=== PATIENT | female | born 1990 | race Caucasian/White ===

== ENCOUNTER 2016-11-07 22:23 | Emergency (ER) | payer OTHER ==
[2016-11-07 22:29] VITALS: BP 97/64; PULSE 116; TEMP 98.9; BMI 23.4
[2016-11-07] MEDS ORDERED: ACETAMINOPHEN 325 MG TABLET (FP) PO ONE (23:29)
--- NOTE | 2016-11-08 00:02 | PDOC ---
History of Present Illness - General History Source: Patient Exam Limitations: No Limitations <Flex Purdy - Last Filed: 11/08/16 00:54> - General History Source: Patient Exam Limitations: No Limitations - History of Present Illness Initial Comments: 11/08/16 00:26 The patient is a 26 year old female ( approximately 39 weeks ), with no significant past medical history, who presents to the ED with body aches , chills, coughing, since yesterday. Patient reports having a 100.7 fever at home. Patient saw her BRUSHER TENDER today and was given tamiflu, but only made it worse. Patient denies abdominal pain, vaginal discharge, bleeding, dysuria, hematuria. Patient nausea, vomiting, diarrhea. <Owen Reis - Last Filed: 11/08/16 01:19> - General Chief Complaint: Cold Symptoms Stated Complaint: COLD SYMPTOMS Time Seen by Provider: 11/07/16 23:21 Past History - Past Medical History Asthma: No Cancer: No Cardiac Disorders: No Diabetes: No HTN: No Seizures: No Thyroid Disease: No - Immunization History Immunization Up to Date: Yes - Psycho/Social/Smoking Cessation Hx Anxiety: No Suicidal Ideation: No Smoking Status: No Smoking History: Never smoked Have you smoked in the past 12 months: No Number of Cigarettes Smoked Daily: 0 Cigars Per Day: 0 Information on smoking cessation initiated: No Hx Alcohol Use: No Drug/Substance Use Hx: No Hx Substance Use Treatment: No <Flex Purdy - Last Filed: 11/08/16 00:54> <Owen Reis - Last Filed: 11/08/16 01:19> - Past Medical History Allergies/Adverse Reactions: Allergies Allergy/AdvReac Type Severity Reaction Status Date / Time No Known Allergies Allergy Verified 11/07/16 22:24 Home Medications: Ambulatory Orders Pnv with Ca,No.71/Iron/FA [ Vitamin Tablet] 1 each PO ASDIR #0 tablet Review of Systems - Review of Systems Able to Perform ROS?: Yes Comments:: 11/08/16 00:26 GENERAL/CONSTITUTIONAL:+ fever. + chills. + body aches. HEAD, EYES, EARS, NOSE AND THROAT: No change in vision. No ear pain or discharge. No sore throat. CARDIOVASCULAR: No chest pain or shortness of breath. RESPIRATORY: + cough. No wheezing, or hemoptysis. GASTROINTESTINAL: No nausea, vomiting, diarrhea or constipation. GENITOURINARY: No dysuria, frequency, or change in urination. MUSCULOSKELETAL: No joint or muscle swelling or pain. No neck or back pain. SKIN: No rash NEUROLOGIC: No headache, vertigo, loss of consciousness, or change in strength/ sensation. ENDOCRINE: No increased thirst. No abnormal weight change. HEMATOLOGIC/LYMPHATIC: No anemia, easy bleeding, or history of blood clots. ALLERGIC/IMMUNOLOGIC: No hives or skin allergy. <Owen Reis - Last Filed: 11/08/16 01:19> *Physical Exam - Vital Signs Last Vital Signs Temp Pulse Resp BP Pulse Ox 98.9 F 116 H 16 97/64 100 11/07/16 22:25 11/07/16 22:25 11/07/16 22:25 11/07/16 22:25 11/07/16 22:25 <Flex Purdy - Last Filed: 11/08/16 00:54> - Vital Signs Last Vital Signs Temp Pulse Resp BP Pulse Ox 98.9 F 116 H 16 97/64 100 11/07/16 22:25 11/07/16 22:25 11/07/16 22:25 11/07/16 22:25 11/07/16 22:25 - Physical Exam Comments: 11/08/16 00:27 GENERAL: Awake, alert, and fully oriented, in no acute distress HEAD: No signs of trauma EYES: PERRLA, EOMI, sclera anicteric, conjunctiva clear ENT: Auricles normal inspection, hearing grossly normal, nares patent, oropharynx clear without exudates. Moist mucosa NECK: Normal ROM, supple, no lymphadenopathy, JVD, or masses LUNGS: Breath sounds equal, clear to auscultation bilaterally. No wheezes, and no crackles HEART: Regular rate and rhythm, normal S1 and S2, no murmurs, rubs or gallops ABDOMEN: Soft, nontender, normoactive bowel sounds. No guarding, no rebound. No masses EXTREMITIES: Normal range of motion, no edema. No clubbing or cyanosis. No cords, erythema, or tenderness NEUROLOGICAL: Cranial nerves II through XII grossly intact. Normal speech, normal gait SKIN: Warm, Dry, normal turgor, no rashes or lesions noted. <Owen Reis - Last Filed: 11/08/16 01:19> ED Treatment Course - Medications Given in the ED: ED Medications Discontinued Medications Generic Name Dose Route Start Last Admin Trade Name Freq PRN Reason Stop Dose Admin Acetaminophen 650 mg 11/07/16 23:29 11/07/16 23:38 Tylenol - PO 11/07/16 23:30 650 mg ONCE ONE Administration <Flex Purdy - Last Filed: 11/08/16 00:54> - Medications Given in the ED: ED Medications Discontinued Medications Generic Name Dose Route Start Last Admin Trade Name Freq PRN Reason Stop Dose Admin Acetaminophen 650 mg 11/07/16 23:29 11/07/16 23:38 Tylenol - PO 11/07/16 23:30 650 mg ONCE ONE Administration <Owen Reis - Last Filed: 11/08/16 01:19> Medical Decision Making - Medical Decision Making 11/08/16 00:19 A portion of this note was documented by scribe services under my direction. I have reviewed the details of the note, within reason, and agree with the documentation with the following case summary and management plan written by me. Patient treated in the ED. Nursing notes are reviewed and incorporated into the medical decision-making. Vital signs reviewed. Peripheral IV access obtained by the nurse, laboratory studies are drawn and sent, reviewed and interpreted by myself. Vital Signs Temp Pulse Resp BP Pulse Ox 98.9 F 116 H 16 97/64 100 11/07/16 22:25 11/07/16 22:25 11/07/16 22:25 11/07/16 22:25 11/07/16 22:25 26-year-old female with no past medical history approximately 39 weeks presents to the emergency department for cold-like symptoms. 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 She was given Tamiflu. Ever, she reported that she felt body aches, chills, tactile fevers and coughing. She denies abdominal pain or vaginal bleeding. She reports that the Tamiflu dose didn't help. I treated the patient that 1 dose probably did not take effect. However, we'll send influenza swab. Supportive care. The patient stated that she would like to be home and away from the ER from all of its actions. I told her that she can call me back for the results for the influenza. I discussed the physical exam findings, ancillary test results and final diagnoses with the patient. I answered all of the patient's questions. The patient was satisfied with the care received and felt comfortable with the discharge plan and treatment plan. The patient will call their primary care physician within 24 hours to arrange follow-up and will return to the Emergency Department with any new, persistant or worsening symptoms. 11/08/16 00:54 Repeat HR upon discharge is 96. <Flex Purdy - Last Filed: 11/08/16 00:54> - Medical Decision Making 11/08/16 01:08 We contacted the patient and informed her she was positive for the influenza. Patient should continue taking Tamiflu. <Owen Reis - Last Filed: 11/08/16 01:19> *DC/Admit/Observation/Transfer - Discharge Dispostion Admit: No <Flex Purdy - Last Filed: 11/08/16 00:54> - Attestations Scribe Attestion: 11/08/16 00:28 Documentation prepared by Owen Reis, acting as medical clinic manager for Flex Purdy MD, MD. <Owen Reis - Last Filed: 11/08/16 01:19> Diagnosis at time of Disposition: Upper respiratory infection Qualifiers: URI type: unspecified URI Qualified Code(s): J06.9 - Acute upper respiratory infection, unspecified - Discharge Dispostion Disposition: HOME Condition at time of disposition: Stable - Referrals Referrals: Britt Lopez MD [Primary Care Provider] - - Patient Instructions Printed Discharge Instructions: DI for Viral Upper Respiratory Infection -- Adult Additional Instructions: Please call back at [phone] for the influenza results. If it's possible, please continue to take the tamiflu. Otherwise, take 650 mg tylenol every 4 hours as needed for fever or pain. Follow up with the vice president consulting services physician.
== END 2016-11-08 00:51 | disposition home or self-care (01) ==
LOC: JERFT 22:23 → JER 22:23
DX: O98.513 Other viral diseases complicating pregnancy, third trimester (principal); B33.8 Other specified viral diseases; J09.X2 Influenza due to identified novel influenza A virus with other respiratory manifestations; Z3A.39 39 weeks gestation of pregnancy
CPT/HCPCS: 87804; 99282-25

== ENCOUNTER 2017-09-27 20:06 | Emergency (ER) | payer OTHER ==
[2017-09-27 20:11] VITALS: BP 103/60; PULSE 83; TEMP 98.3; BMI 21.2
--- NOTE | 2017-09-27 20:17 | PDOC ---
History of Present Illness - General Chief Complaint: Cold Symptoms Stated Complaint: COUGH/CHEST CONGESTION Time Seen by Provider: 09/27/17 20:10 History Source: Patient Exam Limitations: No Limitations - History of Present Illness Initial Comments: 09/27/17 20:22 27 y/o female presents to the ED with dry hacking cough x 1 week and sore throat x 3 days. Pt denies difficulty swallowing, fever, difficulty breathing, headaches, or weakness. Pt denies smoking Severity: reports: mild Possible Cause: Yes: no prior episodes Associated Symptoms: reports: cough, sore throat. denies: chest pain/soreness, earache, fever/chills Past History - Travel Traveled outside of the country in the last 30 days: No - Past Medical History Allergies/Adverse Reactions: Allergies Allergy/AdvReac Type Severity Reaction Status Date / Time No Known Allergies Allergy Verified 09/27/17 20:08 Home Medications: Ambulatory Orders Phenylephrine/Dm/Acetaminop/GG [Tylenol Cold & Flu Severe Cplt] 1 each PO ASDIR 09/27/17 Asthma: No Cancer: No Cardiac Disorders: No COPD: No Diabetes: No HTN: No Seizures: No Thyroid Disease: No - Immunization History Immunization Up to Date: Yes - Suicide/Smoking/Psychosocial Hx Smoking Status: No Smoking History: Never smoked Have you smoked in the past 12 months: No Number of Cigarettes Smoked Daily: 0 Cigars Per Day: 0 Hx Alcohol Use: No Drug/Substance Use Hx: No Hx Substance Use Treatment: No Patient Lives Alone: No Lives with/in: spouse/SO Review of Systems - Review of Systems Able to Perform ROS?: Yes Constitutional: No: Symptoms Reported HEENTM: Yes: Throat Pain Respiratory: Yes: Cough Cardiac (ROS): No: Symptoms Reported ABD/GI: No: Symptoms Reported : No: Symptoms Reported Musculoskeletal: No: Symptoms Reported Integumentary: No: Symptoms Reported Neurological: No: Symptoms reported *Physical Exam - Vital Signs Last Vital Signs Temp Pulse Resp BP Pulse Ox 98.3 F 83 18 103/60 98 09/27/17 20:09 09/27/17 20:09 09/27/17 20:09 09/27/17 20:09 09/27/17 20:09 - Physical Exam General Appearance: Yes: Nourished, Appropriately Dressed. No: Apparent Distress HEENT: positive: EOMI, BURAK, TMs Normal, Pharynx Normal. negative: Pale Conjunctivae Neck: positive: Supple. negative: Lymphadenopathy (R), Lymphadenopathy (L) Respiratory/Chest: positive: Lungs Clear, Normal Breath Sounds. negative: Respiratory Distress, Accessory Muscle Use Cardiovascular: positive: Regular Rhythm, Regular Rate. negative: Murmur Gastrointestinal/Abdominal: positive: Soft. negative: Tenderness Integumentary: positive: Normal Color, Warm, Moist Neurologic: positive: Motor Strength 5/5 (ambulatory) Medical Decision Making - Medical Decision Making 09/27/17 20:25 Pt with uri complaints. Pt on exam with bronchitis. Pt will be discharged with Azithromycin *DC/Admit/Observation/Transfer Diagnosis at time of Disposition: Bronchitis - Discharge Dispostion Disposition: HOME Condition at time of disposition: Good - Referrals - Patient Instructions Printed Discharge Instructions: DI for Acute Bronchitis Additional Instructions: Please take azithromycin and motrin for pain. Use lozenges for throat pain and drink plenty of fluid - Post Discharge Activity
== END 2017-09-27 20:38 | disposition home or self-care (01) ==
LOC: JERFT 20:06
DX: J40 Bronchitis, not specified as acute or chronic (principal)
CPT/HCPCS: 99281-25

== ENCOUNTER 2019-07-15 04:05 | Emergency (ER) | payer OTHER ==
--- NOTE | 2019-07-15 04:29 | PDOC ---
History of Present Illness - General Stated Complaint: CHEST PAIN,DRY MOUTH,SHORTNESS OF BREATH Time Seen by Provider: 07/15/19 04:28 History Source: Patient, Spouse Exam Limitations: No Limitations - History of Present Illness Initial Comments: 07/15/19 04:29 HPI: 29yo F with no PMH presenting with multiple complaints 2 hours after drinking Kombucha and Elderberry syrup. Patient drank Kombucha and Elderberry syrup at midnight before bed. Awoke at 2AM with chills, dry mouth, dizziness, numbness in the extremities (UE more than low), several episodes of diarrhea, and palpitations. Significant other is presenting with similar symptoms. The two did not have any other shared foods (ate diner at 5 and 9 respectively) and only both had the beverages before bed. They have not had these before and are very nervous about their reactions. Denies swelling, hives, itchy skin or any known food or drug allergies. PMH: Denies PSH: Denies Meds: Denies All: KNDA SHx: Denies smoking / drinking / illicits Past History - Travel Traveled outside of the country in the last 30 days: No Close contact w/someone who was outside of country & ill: No - Past Medical History Allergies/Adverse Reactions: Allergies Allergy/AdvReac Type Severity Reaction Status Date / Time No Known Allergies Allergy Verified 09/27/17 20:08 Home Medications: Ambulatory Orders Azithromycin [Zithromax Tri-Gael (3 DAYS) -] 500 mg PO DAILY #3 tablet 09/27/17 Asthma: No Cancer: No Cardiac Disorders: No COPD: No Diabetes: No HTN: No Seizures: No Thyroid Disease: No - Immunization History Immunization Up to Date: Yes - Suicide/Smoking/Psychosocial Hx Smoking Status: No Smoking History: Never smoked Have you smoked in the past 12 months: No Number of Cigarettes Smoked Daily: 0 Cigars Per Day: 0 Hx Alcohol Use: No Drug/Substance Use Hx: No Hx Substance Use Treatment: No Review of Systems - Review of Systems Able to Perform ROS?: Yes Is the patient limited Yakut proficient: Yes Constitutional: Yes: Chills, Diaphoresis, Fever, Weakness HEENTM: No: Recent change in vision, Nose Pain, Throat Pain, Throat Swelling, Mouth Pain, Mouth Swelling Respiratory: No: Cough, Shortness of Breath, Wheezing Cardiac (ROS): Yes: Irregular Heart Rate, Palpitations. No: Chest Pain, Edema, Syncope, Chest Tightness ABD/GI: Yes: Diarrhea, Nausea, Vomiting. No: Blood Streaked Bowels, Rectal Bleeding, Indigestion, Abdominal cramping : No: Burning, Dysuria, Frequency Musculoskeletal: No: Back Pain, Gout, Joint Pain, Muscle Weakness Integumentary: No: Bruising, Pallor, Pruritus, Rash Neurological: Yes: Headache, Numbness, Tingling, Tremors Psychiatric: Yes: Anxiety Endocrine: Yes: Excessive Sweating, Flushing. No: Increased Thirst, Change in Weight Hematologic/Lymphatic: No: Anemia, Blood Clots, Easy Bruising All Other Systems: Reviewed and Negative *Physical Exam - Physical Exam Comments: 07/15/19 04:53 Gen: Anxious appearing woman, sitting in bed, NAD, appears stated age HEENT: NCAT, MMM, EOMI, PERRL CV: RRR, nl s1/s2, no murmurs Pulm: CTABL, normal WOB, no wheezes / rales / rhonchi Abd: soft, nontender, nondistended Ext: WWP, no clubbing / cyanosis / edema Pulses: 2+ radial and PT Neuro: alert and oriented, CN grossly intact, sensation intact, 5+ strength, MAEE ED Treatment Course - LABORATORY CBC & Chemistry Diagram: 07/15/19 04:15 07/15/19 04:15 Medical Decision Making - Medical Decision Making 07/15/19 04:57 29yo F with no PMH presenting with multiple complaints 2 hours after drinking Kombucha and Elderberry syrup. History same as reported by significant other. Exam unremarkable. Vitals notable for soft pressure, possibly baseline, and mild tachycardia initially. Concerning for forborne pathogen vs anxiety vs atypical allergic response vs viral gastroenterisits / syndrome unrelated to recent ingestions. -Serum Preg -CBC, CMP -IVF 1L -Zofran 4mg -Pepcid 07/15/19 05:59 -No leukocytosis or anemia -No electroolyte derangements -LFTs within normal ranges -Cr 0.9 07/15/19 06:29 -Pt reports feeling much better, attributes some sx to nerves, feeling like she poisoned herself (three kids at home) -Discussed return precautions and supportive care at home -Repeat vitals stable Dispo: home *DC/Admit/Observation/Transfer Diagnosis at time of Disposition: Gastroenteritis - Discharge Dispostion Disposition: HOME Condition at time of disposition: Improved Decision to Admit order: No - Referrals Referrals: Rivera Boogie [Primary Care Provider] - - Patient Instructions Printed Discharge Instructions: DI for Food Poisoning, DI for Viral Gastroenteritis -- Adult Additional Instructions: Please follow up with your primary care physician in the next week. In the meantime, return to the ED for any new or concerning symptoms. The treatment for your condition is supportive care - this means you should stay hydrated (with water and gatorade) and take tylenol as needed for pain and fever per directions on the bottle. You can also use an over the counter antacid such as pepcid for belly/burning pain. - Post Discharge Activity
[2019-07-15] MEDS ORDERED: SODIUM CHLORIDE 0.9% 500 ML INFUS.BAG IV ONE (04:41)
--- NOTE | 2019-07-15 04:41 | PDOC ---
Attending Attestation - Resident Resident Name: Min Peña - ED Attending Attestation I have performed the following: I have examined & evaluated the patient, The case was reviewed & discussed with the resident, I agree w/resident's findings & plan, Exceptions are as noted - HPI HPI: 07/15/19 08:28 29F no pmh here with chills, dry outh, dizziness, generalized paresthesias, several episodes of diarrhea and palpitations after drinking kombucha - Physicial Exam PE: 07/15/19 08:29 Agree with exam as documented by resident - Medical Decision Making 07/15/19 08:31 Food borne pathogen? viral AGE? Unlikely allergic reaction, focal neurologic pathology labs unremarkable Symptoms resolved dc home
[2019-07-15] MEDS ORDERED: ONDANSETRON 4 MG/2 ML VIAL IVPUSH ONE (05:14)
[2019-07-15] MEDS ORDERED: FAMOTIDINE 20 MG/50 ML IVPB 20 MG/50 ML MG IVPB ONE ×2 (05:15→05:19)
[2019-07-15 05:17] VITALS: TEMP 98.7; BMI 15.8
[2019-07-15] MEDS ORDERED: ONDANSETRON 4 MG/2 ML VIAL ONE (05:19)
[2019-07-15 05:22] LABS: BASO % 1.1 % (0-2.0); EOS % 0.6 % (0-4.5); HEMATOCRIT 39.9 % (32.4-45.2); HEMOGLOBIN 13.4 GM/dL (10.7-15.3); LYMPH % 21.9 % (8-40); MCH 31.6 pg (25.7-33.7); MCHC 33.6 g/dl (32.0-36.0); MEAN CELL VOLUME 94.1 fl (80-96); MEAN PLT VOLUME 10.3 fl (7.5-11.1); MONO % 7.7 % (3.8-10.2); NEUT % 68.7 % (42.8-82.8); PLATELET COUNT 137 K/MM3 (134-434); RBC 4.23 M/mm3 (3.60-5.2); RDW 13.6 % (11.6-15.6); WHITE BLOOD COUNT 6.4 K/mm3 (4.0-10.0)
[2019-07-15 05:51] LABS: ALBUMIN 4.2 g/dl (3.4-5.0); BILIRUBIN,TOTAL 0.5 mg/dL (0.2-1); BLOOD UREA NITROGEN 11.6 mg/dL (7-18); CREATININE 0.9 mg/dL (0.55-1.3); POTASSIUM 3.7 mmol/L (3.5-5.1); TOT PROT 7.2 g/dl (6.4-8.2)
[2019-07-15 06:58] VITALS: BP 98/63; PULSE 62
--- NOTE | 2019-07-15 14:19 | EKG ---
Test Reason : Blood Pressure : / mmHG Vent. Rate : 100 BPM Atrial Rate : 100 BPM P-R Int : 174 ms QRS Dur : 076 ms QT Int : 336 ms P-R-T Axes : 085 088 069 degrees QTc Int : 433 ms NORMAL SINUS RHYTHM RIGHT ATRIAL ENLARGEMENT NO PREVIOUS ECGS AVAILABLE Confirmed by MAC RED MD ([id number]) on 07/15/2019 2:19:00 PM Referred By: Confirmed By:MAC RED MD
== END 2019-07-15 07:00 | disposition home or self-care (01) ==
LOC: JER 04:05
PROC: 3E033GC Introduction of Other Therapeutic Substance into Peripheral Vein, Percutaneous Approach (ICD-10-PCS; principal; 2019-07-15)
PROC: 3E033GC Introduction of Other Therapeutic Substance into Peripheral Vein, Percutaneous Approach (ICD-10-PCS; 2019-07-15)
DX: K52.9 Noninfective gastroenteritis and colitis, unspecified (principal)
CPT/HCPCS: 36415; 80053; 84703; 85025; 93005; 93010; 96365; 96375; 99283-25

== ENCOUNTER 2019-07-20 03:00 | Emergency (ER) | payer OTHER ==
[2019-07-20] MEDS ORDERED: SODIUM CHLORIDE 1,000 ML IV STA (03:36)
[2019-07-20] MEDS ORDERED: ALPRAZolam 0.25 MG TABLET PO ONE (03:38)
--- NOTE | 2019-07-20 03:39 | PDOC ---
History of Present Illness - General Stated Complaint: PALPITATIONS Time Seen by Provider: 07/20/19 03:30 History Source: Patient Exam Limitations: No Limitations - History of Present Illness Initial Comments: Анна Higgins is 29 yo F w a pmh of hypothyroidism on synthroid that presents to the [facility] er after she woke up with palpitations which have resolved before she came into the ER. The patient states this is the 3rd time this week she experienced random palpitations. She denies having experienced any chest pain, SOB, difficulty breathing, nausea vomiting, fevers, chills, or infections. She states that her child was diagnosed with strep throat this week but she has not experienced any symptoms. Patient also endorses dysuria and frequency with possible abnormal urinary discharge. LMP: currently on period - started 2 days ago PCP: Keenan Boogie PSH: None reported Allergies: NKA, NKDA Social Hx: Recreational alcohol use. Denies smoking or illicit drug usage Past History - Past Medical History Allergies/Adverse Reactions: Allergies Allergy/AdvReac Type Severity Reaction Status Date / Time No Known Allergies Allergy Verified 07/20/19 03:49 Home Medications: Ambulatory Orders Levothyroxine [Synthroid -] 50 mcg PO DAILY 07/20/19 Asthma: No Cancer: No Cardiac Disorders: No COPD: No Diabetes: No HTN: No Seizures: No Thyroid Disease: No - Immunization History Immunization Up to Date: Yes - Psycho Social/Smoking Cessation Hx Smoking Status: No Smoking History: Never smoked Have you smoked in the past 12 months: No Number of Cigarettes Smoked Daily: 0 Cigars Per Day: 0 Hx Alcohol Use: No Drug/Substance Use Hx: No Hx Substance Use Treatment: No Review of Systems - Review of Systems Able to Perform ROS?: Yes Comments:: CONSTITUTIONAL: Absent: fever, no chills, no fatigue EYES: Absent: visual changes ENT: Absent: ear pain, no sore throat CARDIOVASCULAR: Present: Palpitations Absent: chest pain RESPIRATORY: Absent: cough, no SOB GI: Absent: abdominal pain, no nausea, no vomiting, no constipation, no diarrhea GENITOURINARY: Absent: dysuria, no frequency, no hematuria MUSKULOSKELETAL: Absent: back pain, no arthralgia, no myalgia SKIN: Absent: rash NEURO: Absent: headache *Physical Exam - Physical Exam Comments: GENERAL: Well-appearing, well-nourished. No apparent distress. HEENT: Normocephalic, atraumatic. PERRL, EOM intact. CARDIOVASCULAR: Normal S1, S2. Regular rate and rhythm. PULMONARY: No evidence of respiratory distress. Lungs clear to auscultation bilaterally. No wheezing, rales or rhonchi. ABDOMEN: Soft, non-distended, non-tender. EXTREMITIES: Normal ROM in all four extremities. No gross deformities. SKIN: Warm, dry. No rash NEUROLOGICAL: No focal neurological deficits. ED Treatment Course - LABORATORY CBC & Chemistry Diagram: 07/20/19 03:53 07/20/19 03:53 Medical Decision Making - Medical Decision Making Анна Higgins is 29 yo F w a pmh of hypothyroidism on synthroid that presents to the [facility] er after she woke up with palpitations which have resolved before she came into the ER. The patient states this is the 3rd time this week she experienced random palpitations. She denies having experienced any chest pain, SOB, difficulty breathing, nausea vomiting, fevers, chills, or infections. She states that her child was diagnosed with strep throat this week but she has not experienced any symptoms. Patient also endorses dysuria and frequency with possible abnormal urinary discharge. VS: WNL DDx IBNLT: UTI/pylo, Anxiety, ACS/IN, myocarditis, Thyroid abnormalities, , electrolyte/metabolic disturbance Plan: labs, urine, ekg, re-assess. EKG: NS rate of 77, narrow complexes, normal axis, no hypertrophy, no ST elevations or depressions, no delta waves, no abnormal TWI's Labs: Mildly elevated TSH of 5.84 Urine: 1+ blood prob from menstrual cycle Re-assessment: Patient feels well after xanax and requests to be discharged Disposition: DC w PCP and endo FU *DC/Admit/Observation/Transfer Diagnosis at time of Disposition: Palpitations - Discharge Dispostion Disposition: HOME Condition at time of disposition: Improved Decision to Admit order: No - Referrals Referrals: Rivera Boogie [Primary Care Provider] - - Patient Instructions Printed Discharge Instructions: DI for Palpitations Additional Instructions: You came into the ER with palpitations. We did an EKG and looked at your blood and found out that you did not have a heart attack. Please make sure to follow up with your primary care doctor in the next 3 to 5 days. Please also follow up with your endocrine doctor to make sure your thyroid hormone levels are normal as your TSH was mildly elevated in the ER today at 5.84 Come back to the ER immediately if your symptoms worsen, you have chest pain, or have any other new or worsening concerns. Thank you for coming to the [facility] ER. We hope you feel better soon! Print Language: SLOVENIAN - Post Discharge Activity Discharge - Discharge Information Problems reviewed: Yes Clinical Impression/Diagnosis: Palpitations Condition: Improved Disposition: HOME - Follow up/Referral Referrals: Rivera Boogie [Primary Care Provider] - - Patient Discharge Instructions Patient Printed Discharge Instructions: DI for Palpitations Additional Instructions: You came into the ER with palpitations. We did an EKG and looked at your blood and found out that you did not have a heart attack. Please make sure to follow up with your primary care doctor in the next 3 to 5 days. Please also follow up with your endocrine doctor to make sure your thyroid hormone levels are normal as your TSH was mildly elevated in the ER today at 5.84 Come back to the ER immediately if your symptoms worsen, you have chest pain, or have any other new or worsening concerns. Thank you for coming to the [facility] ER. We hope you feel better soon! Print Language: SLOVENIAN - Post Discharge Activity
[2019-07-20 03:48] VITALS: BP 108/70; PULSE 74; TEMP 98; BMI 19.4
--- NOTE | 2019-07-20 03:49 | PDOC ---
Attending Attestation - Resident Resident Name: Naeem Valverde - ED Attending Attestation I have performed the following: I have examined & evaluated the patient, The case was reviewed & discussed with the resident, I agree w/resident's findings & plan - HPI HPI: 07/20/19 03:45 see resident hpi - Physicial Exam PE: 07/20/19 03:45 agree with resident exam - Medical Decision Making 07/20/19 03:46 29 yo female with palpitations EKG wnl plan for labs, obs, d/c
[2019-07-20] MEDS ORDERED: ALPRAZolam 0.25 MG TABLET ONE (04:04)
[2019-07-20 04:08] LABS: HEMOGLOBIN 13.7 GM/dL (10.7-15.3)
[2019-07-20 04:15] LABS: URINE APPEARANCE CLEAR; URINE BILIRUBIN NEGATIVE (NEGATIVE); URINE COLOR YELLOW; URINE GLUCOSE (UA) NEGATIVE (NEGATIVE); URINE KETONE NEGATIVE (NEGATIVE); URINE LEUK ESTERASE NEGATIVE (NEGATIVE); URINE NITRITE NEGATIVE (NEGATIVE); URINE PROTEIN NEGATIVE (NEGATIVE); URINE UROBILINOGEN 0.2 mg/dL (0.2-1.0)
[2019-07-20 04:20] LABS: BASO % 0.5 % (0-2.0); EOS % 1.8 % (0-4.5); HEMATOCRIT 41.4 % (32.4-45.2); LYMPH % 36.5 % (8-40); MCH 31.2 pg (25.7-33.7); MEAN CELL VOLUME 94.6 fl (80-96); MEAN PLT VOLUME 10.1 fl (7.5-11.1); MONO % 8.8 % (3.8-10.2); NEUT % 52.4 % (42.8-82.8); PLATELET COUNT 141 K/MM3 (134-434); RBC 4.38 M/mm3 (3.60-5.2); RDW 13.8 % (11.6-15.6); WHITE BLOOD COUNT 6.5 K/mm3 (4.0-10.0)
[2019-07-20 04:31] LABS: ALBUMIN 4.1 g/dl (3.4-5.0); BILIRUBIN,TOTAL 0.4 mg/dL (0.2-1); BLOOD UREA NITROGEN 13.8 mg/dL (7-18); CALCIUM 8.9 mg/dL (8.5-10.1); POTASSIUM 4.2 mmol/L (3.5-5.1)
[2019-07-20 04:43] LABS: MAGNESIUM 2.1 mg/dL (1.8-2.4)
--- NOTE | 2019-07-20 10:44 | EKG ---
Test Reason : Blood Pressure : / mmHG Vent. Rate : 077 BPM Atrial Rate : 077 BPM P-R Int : 168 ms QRS Dur : 070 ms QT Int : 360 ms P-R-T Axes : 079 082 070 degrees QTc Int : 407 ms NORMAL SINUS RHYTHM WITH SINUS ARRHYTHMIA NORMAL ECG WHEN COMPARED WITH ECG OF 15-JUL-2019 04:34, NO SIGNIFICANT CHANGE WAS FOUND Confirmed by ELIEZER QUINTEROS, RIGOBERTO ([id number]) on 07/20/2019 10:43:38 AM Referred By: Confirmed By:RIGOBERTO MARTINS MD
[2019-07-20 12:26] LABS: EPI CELLS 1.4 /HPF (0-5/HPF); URINE WBC 0.2 /hpf (0-5)
[2019-07-20 12:27] LABS: HYALINE CASTS 0.35 /lpf (0-8); URINE BACTERIA 1.7 /hpf (NEGATIVE); URINE RBC 0.3 /hpf (0-4)
== END 2019-07-20 05:18 | disposition home or self-care (01) ==
LOC: JER 03:00
PROC: 3E0337Z Introduction of Electrolytic and Water Balance Substance into Peripheral Vein, Percutaneous Approach (ICD-10-PCS; principal; 2019-07-20)
DX: R00.2 Palpitations (principal); E03.9 Hypothyroidism, unspecified
CPT/HCPCS: 36415; 80053; 81003; 83735; 84443; 84484; 84703; 85025; 87086; 93005; 93010; 99283-25; J7030